=== PATIENT | male | born 1955 | race Caucasian/White ===

== ENCOUNTER → 2017-08-06 06:05 | Outpatient (CLI) | payer BC, SELFPAY ==
[2017-08-06 08:56] LABS: ALB/GLOB Ratio 0.8 RATIO (0.9-2.4); AST(SGOT) 25 U/L (15-37); Alanine Aminotransfer ALT/SGPT 28 U/L (16-61); Albumin, Serum 3.7 g/dL (3.2-5.0); Alkaline Phosphatase 95 U/L (45-117); Anion Gap 11 (5-15); BUN 21 mg/dL (7-18); BUN/Creat Ratio 16.5 RATIO (10-20); Calcium,Total 9.2 mg/dL (8.5-10.1); Chloride 98 mmol/L (98-107); Cholesterol 147 mg/dL (200); Creatinine, Serum 1.27 mg/dL (0.70-1.30); EST Glomerular Filtration Rate 61 mL/min (>60); Est Glom Filt Rate - Afr Amer 73 mL/min (>60); Globulin 4.4 g/dL (2.2-4.2); Glucose 107 mg/dL (70-110); High Density Lipoprotein 47 mg/dL; Potassium 3.6 mmol/L (3.5-5.1); Protein, Total 8.1 g/dL (6.4-8.2); Sodium Level 136 mmol/L (136-145); Triglycerides 144 mg/dL; Very Low Density Lipoprotein 29 mg/dL (5-40)
[2017-08-06 09:02] LABS: Hemoglobin A1c 6.1 % (4.2-6.3)
== END ==
PROVIDERS: Family Provider Internal Medicine; PCP Internal Medicine; Visit Provider Internal Medicine
DX: I10 Essential (primary) hypertension (principal); E78.2 Mixed hyperlipidemia; E88.81 Metabolic syndrome and other insulin resistance; Z79.899 Other long term (current) drug therapy
CPT/HCPCS: 36415; 80053; 80061; 83036; 84550

== ENCOUNTER → 2018-02-19 06:54 | Outpatient (CLI) | payer OTHER, SELFPAY ==
[2018-02-19 07:57] LABS: Absolute Lymphocyte Count 1.82 X10^3/ul (0.83-4.51); Absolute Neutrophil Count 5.9 X10^3/uL (2.0-7.7); Basophil% 1.1 % (0-1); Eosinophil# 0.38 X10^3/uL; Eosinophils% 4.2 % (0-5); Hematocrit 42.7 % (40-54); Hemoglobin 14.8 g/dl (13.0-16.5); Lymphocyte # 1.82 X10^3/ul (4.0); Lymphocyte % 20.3 % (19-41); Mean Corp Hgb Conc 34.7 g/gl (32-36); Mean Corpuscular Hgb 30.4 pg (27.0-32.0); Mean Corpuscular Volume 87.7 fL (80-94); Mean Platelet Vol. 8.7 fl (6.2-12.0); Monocyte# 0.65 X10^3/uL; Monocyte% 7.3 % (0-10); Neutrophil # 5.94 X10^3/uL (2.7-7.7); Neutrophil % 66.4 % (47-70); Platelet Count 179 K/mm3 (150-450); RBC Distribution Width CV 13.3 % (11.6-14.6); RBC Distribution Width SD 41.9 fl (35.1-43.9); Red Blood Count 4.87 M/mm3 (4.6-6.2)
[2018-02-19 07:59] LABS: POSITIVE COUNT NO; POSITIVE DIFFERENTIAL NO; POSITIVE MORPHOLOGY NO
[2018-02-19 08:17] LABS: Hemoglobin A1c 6.2 % (4.2-6.3)
[2018-02-19 08:27] LABS: ALB/GLOB Ratio 0.8 RATIO (0.9-2.4); AST(SGOT) 26 U/L (15-37); Alanine Aminotransfer ALT/SGPT 24 U/L (16-61); Albumin, Serum 3.3 g/dL (3.2-5.0); Alkaline Phosphatase 88 U/L (45-117); Anion Gap 6 (5-15); BUN 19 mg/dL (7-18); BUN/Creat Ratio 15.3 RATIO (10-20); Calcium,Total 8.6 mg/dL (8.5-10.1); Chloride 106 mmol/L (98-107); Cholesterol 143 mg/dL (200); Creatinine, Serum 1.24 mg/dL (0.70-1.30); EST Glomerular Filtration Rate 62 mL/min (>60); Est Glom Filt Rate - Afr Amer 75 mL/min (>60); Globulin 4.1 g/dL (2.2-4.2); Glucose 119 mg/dL (74-106); High Density Lipoprotein 41 mg/dL; Potassium 3.9 mmol/L (3.5-5.1); Protein, Total 7.4 g/dL (6.4-8.2); Sodium Level 139 mmol/L (136-145); Triglycerides 170 mg/dL; Uric Acid 6.2 mg/dL (3.5-7.2); Very Low Density Lipoprotein 34 mg/dL (5-40)
== END ==
PROVIDERS: Family Provider Internal Medicine; PCP Internal Medicine; Visit Provider Internal Medicine
DX: I10 Essential (primary) hypertension (principal); E78.2 Mixed hyperlipidemia; E88.81 Metabolic syndrome and other insulin resistance; Z79.899 Other long term (current) drug therapy
CPT/HCPCS: 36415; 80053; 80061; 83036; 84550; 85025

== ENCOUNTER → 2018-10-08 08:58 | Outpatient (CLI) | payer MEDICARE, OTHER, SELFPAY ==
[2017-11-18 16:14] VITALS: BMI 45.1
[2018-10-08 10:16] LABS: Hematocrit 45.4 % (40-54); Hemoglobin 15.3 g/dl (13.0-16.5); Mean Corp Hgb Conc 33.7 g/gl (32-36); Mean Corpuscular Hgb 30.4 pg (27.0-32.0); Mean Corpuscular Volume 90.1 fL (80-94); Mean Platelet Vol. 8.9 fl (6.2-12.0); Platelet Count 153 K/mm3 (150-450); RBC Distribution Width CV 13.9 % (11.6-14.6); RBC Distribution Width SD 45.7 fl (35.1-43.9); Red Blood Count 5.04 M/mm3 (4.6-6.2); Scan Indicated on CBC? Y/N NO; White Blood Count 7.6 K/mm3 (4.4-11.0)
[2018-10-08 10:41] LABS: AST(SGOT) 23 U/L (15-37); Alanine Aminotransfer ALT/SGPT 24 U/L (16-61); Albumin, Serum 3.6 g/dL (3.2-5.0); Alkaline Phosphatase 78 U/L (45-117); Anion Gap 4 (5-15); BUN 19 mg/dL (7-18); BUN/Creat Ratio 16.4 RATIO (10-20); Calcium,Total 9.1 mg/dL (8.5-10.1); Chloride 107 mmol/L (98-107); Cholesterol 132 mg/dL (200); Creatinine, Serum 1.16 mg/dL (0.70-1.30); EST Glomerular Filtration Rate 67 mL/min (>60); Est Glom Filt Rate - Afr Amer 81 mL/min (>60); Globulin 3.7 g/dL (2.2-4.2); Glucose 120 mg/dL (74-106); High Density Lipoprotein 44 mg/dL; Potassium 3.9 mmol/L (3.5-5.1); Protein, Total 7.3 g/dL (6.4-8.2); Sodium Level 141 mmol/L (136-145); Triglycerides 156 mg/dL; Uric Acid 5.9 mg/dL (3.5-7.2); Very Low Density Lipoprotein 31 mg/dL (5-40)
[2018-10-08 10:47] LABS: Hemoglobin A1c 6.2 % (4.2-6.3)
== END ==
PROVIDERS: Family Provider Internal Medicine; PCP Internal Medicine; Referring Provider Internal Medicine; Visit Provider Internal Medicine
DX: I10 Essential (primary) hypertension (principal); E78.2 Mixed hyperlipidemia; M10.9 Gout, unspecified; E88.81 Metabolic syndrome and other insulin resistance; Z79.899 Other long term (current) drug therapy
CPT/HCPCS: 36415; 80053; 80061; 83036; 84550; 85027

== ENCOUNTER → 2019-04-06 | Outpatient (CLI) | payer MEDICARE, OTHER, SELFPAY ==
[2019-01-19 14:34] VITALS: BMI 43.8
[2019-04-06 09:49] LABS: Hematocrit 44.2 % (40-54); Hemoglobin 15.1 g/dL (13.0-16.5); Mean Corp Hgb Conc 34.2 g/dL (32-36); Mean Corpuscular Hgb 29.7 pg (27.0-32.0); Mean Platelet Vol. 8.8 fl (6.2-12.0); Platelet Count 180 K/mm3 (150-450); RBC Distribution Width CV 13.5 % (11.6-14.6); RBC Distribution Width SD 42.3 fl (35.1-43.9); Red Blood Count 5.08 M/mm3 (4.6-6.2)
[2019-04-06 10:27] LABS: Hemoglobin A1c 6.4 % (4.2-6.3)
[2019-04-06 10:32] LABS: ALB/GLOB Ratio 0.9 RATIO (0.9-2.4); AST(SGOT) 25 U/L (15-37); Alanine Aminotransfer ALT/SGPT 24 U/L (16-61); Albumin, Serum 3.6 g/dL (3.2-5.0); Alkaline Phosphatase 104 U/L (45-117); Anion Gap 6 (5-15); BUN 18 mg/dL (7-18); BUN/Creat Ratio 15.4 RATIO (10-20); Calcium,Total 8.9 mg/dL (8.5-10.1); Chloride 106 mmol/L (98-107); Cholesterol 162 mg/dL (200); Creatinine, Serum 1.17 mg/dL (0.70-1.30); EST Glomerular Filtration Rate 66 mL/min (>60); Est Glom Filt Rate - Afr Amer 80 mL/min (>60); Glucose 117 mg/dL (74-106); High Density Lipoprotein 50 mg/dL; Potassium 3.5 mmol/L (3.5-5.1); Protein, Total 7.6 g/dL (6.4-8.2); Sodium Level 139 mmol/L (136-145); Triglycerides 143 mg/dL; Uric Acid 5.9 mg/dL (3.5-7.2); Very Low Density Lipoprotein 29 mg/dL (5-40)
== END | disposition home or self-care (01) ==
LOC: LAB 08:52
PROVIDERS: Family Provider Internal Medicine; PCP Internal Medicine; Referring Provider Internal Medicine; Visit Provider Internal Medicine
DX: I10 Essential (primary) hypertension (principal); R73.01 Impaired fasting glucose; E78.2 Mixed hyperlipidemia
CPT/HCPCS: 36415; 80053; 80061; 83036; 84550; 85027

== ENCOUNTER → 2020-03-26 12:19 | Outpatient (CLI) | payer MEDICARE, OTHER, SELFPAY ==
[2019-11-23 13:04] VITALS: BMI 42.5
[2020-03-26 13:37] LABS: Hematocrit 47.3 % (40-54); Hemoglobin 15.7 g/dL (13.0-16.5); Mean Corp Hgb Conc 33.2 g/dL (32-36); Mean Corpuscular Hgb 29.2 pg (27.0-32.0); Mean Corpuscular Volume 88.1 fL (80-94); Mean Platelet Vol. 8.8 fl (6.2-12.0); Platelet Count 193 K/mm3 (150-450); RBC Distribution Width CV 13.2 % (11.6-14.6); RBC Distribution Width SD 42.5 fl (35.1-43.9); Red Blood Count 5.37 M/mm3 (4.6-6.2); White Blood Count 7.9 K/mm3 (4.4-11.0)
[2020-03-26 14:15] LABS: Hemoglobin A1c 6.2 % (3.8-5.6)
[2020-03-26 14:16] LABS: ALB/GLOB Ratio 0.8 RATIO (0.9-2.4); AST(SGOT) 30 U/L (15-37); Alanine Aminotransfer ALT/SGPT 32 U/L (16-61); Albumin, Serum 3.5 g/dL (3.2-5.0); Alkaline Phosphatase 104 U/L (45-117); Anion Gap 5 (5-15); BUN 18 mg/dL (7-18); Calcium,Total 9.2 mg/dL (8.5-10.1); Chloride 103 mmol/L (98-107); Cholesterol 157 mg/dL (200); EST Glomerular Filtration Rate 64 mL/min (>60); Est Glom Filt Rate - Afr Amer 78 mL/min (>60); Globulin 4.5 g/dL (2.2-4.2); Glucose 121 mg/dL (74-106); High Density Lipoprotein 42 mg/dL; Potassium 3.9 mmol/L (3.5-5.1); Sodium Level 139 mmol/L (136-145); Triglycerides 204 mg/dL; Uric Acid 5.4 mg/dL (3.5-7.2); Very Low Density Lipoprotein 41 mg/dL (5-40)
[2020-03-26 14:45] LABS: Hepatitis C Antibody Non-Reactive (Nonreactive)
== END ==
PROVIDERS: PCP Internal Medicine; Referring Provider Internal Medicine; Visit Provider Internal Medicine
DX: R73.01 Impaired fasting glucose (principal); E78.2 Mixed hyperlipidemia
CPT/HCPCS: 36415; 80053; 80061; 83036; 84550; 85027; 86803

== ENCOUNTER → 2020-10-11 10:04 | Outpatient (CLI) | payer MEDICARE, OTHER, SELFPAY ==
[2020-05-14 11:50] VITALS: BMI 44.4
[2020-10-11 10:30] LABS: Hematocrit 46.7 % (40-54); Hemoglobin 15.5 g/dL (13.0-16.5); Mean Corp Hgb Conc 33.2 g/dL (32-36); Mean Corpuscular Hgb 29.5 pg (27.0-32.0); Mean Corpuscular Volume 88.8 fL (80-94); Mean Platelet Vol. 8.6 fl (6.2-12.0); Platelet Count 168 K/mm3 (150-450); RBC Distribution Width CV 13.1 % (11.6-14.6); RBC Distribution Width SD 42.2 fl (35.1-43.9); Red Blood Count 5.26 M/mm3 (4.6-6.2); White Blood Count 8.2 K/mm3 (4.4-11.0)
[2020-10-11 10:57] LABS: Hemoglobin A1c 6.1 % (3.8-5.6)
[2020-10-11 11:07] LABS: ALB/GLOB Ratio 0.9 RATIO (0.9-2.4); AST(SGOT) 23 U/L (15-37); Alanine Aminotransfer ALT/SGPT 26 U/L (16-61); Albumin, Serum 3.5 g/dL (3.2-5.0); Alkaline Phosphatase 100 U/L (45-117); Anion Gap 3 (5-15); BUN 19 mg/dL (7-18); BUN/Creat Ratio 16.5 RATIO (10-20); Calcium,Total 9.2 mg/dL (8.5-10.1); Chloride 103 mmol/L (98-107); Cholesterol 144 mg/dL (200); Creatinine, Serum 1.15 mg/dL (0.70-1.30); EST Glomerular Filtration Rate 67 mL/min (>60); Est Glom Filt Rate - Afr Amer 81 mL/min (>60); Glucose 118 mg/dL (74-106); High Density Lipoprotein 49 mg/dL; Potassium 4.2 mmol/L (3.5-5.1); Protein, Total 7.5 g/dL (6.4-8.2); Sodium Level 136 mmol/L (136-145); Triglycerides 157 mg/dL; Uric Acid 5.6 mg/dL (3.5-7.2); Very Low Density Lipoprotein 31 mg/dL (5-40)
== END ==
PROVIDERS: PCP Internal Medicine; Referring Provider Internal Medicine; Visit Provider Internal Medicine
DX: R73.01 Impaired fasting glucose (principal); I10 Essential (primary) hypertension; E78.2 Mixed hyperlipidemia; Z79.899 Other long term (current) drug therapy
CPT/HCPCS: 36415; 80053; 80061; 83036; 84550; 85027

== ENCOUNTER → 2020-12-05 13:50 | Outpatient (CLI) | payer MEDICARE, OTHER, SELFPAY ==
[2020-11-28 13:08] VITALS: BMI 44.1
--- NOTE | 2020-12-05 13:52 | ECHOCS_ITS ---
Reason For Study: HYPERTENSION Procedure This was a 2D Doppler, Color Flow transthoracic echocardiogram. The study was technically difficult. Exam performed in department. Left Ventricle Normal LV size. Left ventricular systolic function is normal. The estimated ejection fraction is 65 %. No regional wall motion abnormalities noted. Right Ventricle Normal RV size. Normal systolic function. Atria Normal left atrium. Normal right atrium. Mitral Valve Normal mitral valve. Tricuspid Valve Normal tricuspid valve. Aortic Valve The aortic valve is not well visualized. Pulmonic Valve The pulmonic valve is not well visualized. Great Vessels Normal aortic root. The pulmonary artery is normal size. Normal inferior vena cava. Pericardium/Pleural No pericardial effusion. Medication 22 gauge I.V. with prn adaptor inserted into left arm. Diluted definity 9ml given slow IV push to enhance endocardial definition. MMode/2D Measurements & Calculations LVIDd: 4.9 cm IVSd: 1.3 cm Ao root diam: 3.2 cm LVIDs: 3.3 cm LVPWd: 1.3 cm RVDd: 4.2 cm FS: 33.7 % LAV(MOD-bp): 41.8 ml LVAd ap4: 25.5 cm2 SV(MOD-sp4): 43.4 ml LAV(MOD-bp) Indexed: 16.3 ml/m2 LVLd ap4: 7.8 cm LAV(MOD-sp2): 30.4 ml EDV(MOD-sp4): 68.1 ml LAV(MOD-sp4): 50.4 ml EDV(sp4-el): 70.5 ml LVAs ap4: 13.8 cm2 LVLs ap4: 6.4 cm ESV(MOD-sp4): 24.7 ml ESV(sp4-el): 25.4 ml EF(MOD-sp4): 63.7 % EF(sp4-el): 63.9 % SV(sp4-el): 45.1 ml LA A4 area: 19.3 cm2 LA dimension(2D): 4.5 cm RA A4 area: 19.1 cm2 Time Measurements MV dec time: 0.29 sec Doppler Measurements & Calculations MV E max joo: 59.7 cm/sec Lat Peak E' Joo: 9.7 cm/sec Med Peak E' Joo: 9.2 cm/sec MV A max joo: 76.1 cm/sec E/E' lat: 6.2 E/E' med: 6.5 MV E/A: 0.78 Ao V2 max: 175.7 cm/sec LV V1 max: 113.7 cm/sec PA V2 max: 128.8 cm/sec Ao max P.3 mmHg LV V1 max P.2 mmHg ECHO/Echo Complete W/ Contrast Interpretation Summary Normal LV size. Left ventricular systolic function is normal. The estimated ejection fraction is 65 %. Contrast injection was performed. Ordering Physician: Devonte Calix Referring Physician: MARILIN TONEY Performed By: Lauryn Walker, PRINCESS
== END ==
PROVIDERS: PCP Internal Medicine; Referring Provider Internal Medicine Cardiovascular Disease; Visit Provider Internal Medicine Cardiovascular Disease
DX: I10 Essential (primary) hypertension (principal); R06.02 Shortness of breath
CPT/HCPCS: 93306; Q9957; A4216; C8929

== ENCOUNTER → 2021-04-29 13:01 | Outpatient (CLI) | payer MEDICARE, OTHER, SELFPAY ==
[2021-04-29 13:30] LABS: Hematocrit 47.3 % (40-54); Hemoglobin 15.7 g/dL (13.0-16.5); Mean Corp Hgb Conc 33.2 g/dL (32-36); Mean Corpuscular Hgb 29.3 pg (27.0-32.0); Mean Corpuscular Volume 88.2 fL (80-94); Mean Platelet Vol. 8.6 fl (6.2-12.0); Platelet Count 178 K/mm3 (150-450); RBC Distribution Width CV 13.2 % (11.6-14.6); RBC Distribution Width SD 42.1 fl (35.1-43.9); Red Blood Count 5.36 M/mm3 (4.6-6.2); White Blood Count 8.8 K/mm3 (4.4-11.0)
[2021-04-29 13:46] LABS: Hemoglobin A1c 6.1 % (3.8-5.6)
[2021-04-29 14:15] LABS: ALB/GLOB Ratio 0.8 RATIO (0.9-2.4); AST(SGOT) 36 U/L (15-37); Alanine Aminotransfer ALT/SGPT 35 U/L (16-61); Albumin, Serum 3.5 g/dL (3.2-5.0); Alkaline Phosphatase 115 U/L (45-117); Anion Gap 7 (5-15); BUN 15 mg/dL (7-18); BUN/Creat Ratio 12.5 RATIO (10-20); Calcium,Total 9.1 mg/dL (8.5-10.1); Chloride 104 mmol/L (98-107); Cholesterol 159 mg/dL (200); EST Glomerular Filtration Rate 64 mL/min (>60); Est Glom Filt Rate - Afr Amer 77 mL/min (>60); Globulin 4.3 g/dL (2.2-4.2); Glucose 126 mg/dL (74-106); High Density Lipoprotein 47 mg/dL; Protein, Total 7.8 g/dL (6.4-8.2); Sodium Level 141 mmol/L (136-145); Triglycerides 198 mg/dL; Uric Acid 5.4 mg/dL (3.5-7.2); Very Low Density Lipoprotein 40 mg/dL (5-40)
== END ==
PROVIDERS: PCP Internal Medicine; Referring Provider Internal Medicine; Visit Provider Internal Medicine
DX: I10 Essential (primary) hypertension (principal); R73.01 Impaired fasting glucose; E79.0 Hyperuricemia without signs of inflammatory arthritis and tophaceous disease; E78.2 Mixed hyperlipidemia
CPT/HCPCS: 36415; 80053; 80061; 83036; 84550; 85027

== ENCOUNTER 2021-10-18 09:25 | Outpatient (CLI) | payer MEDICARE, OTHER, SELFPAY ==
[2021-10-18 10:07] LABS: Hematocrit 44.9 % (40-54); Hemoglobin 15.4 g/dL (13.0-16.5); Mean Corp Hgb Conc 34.3 g/dL (32-36); Mean Corpuscular Hgb 29.7 pg (27.0-32.0); Mean Corpuscular Volume 86.5 fL (80-94); Mean Platelet Vol. 8.7 fl (6.2-12.0); Platelet Count 169 K/mm3 (150-450); RBC Distribution Width CV 13.3 % (11.6-14.6); RBC Distribution Width SD 41.6 fl (35.1-43.9); Red Blood Count 5.19 M/mm3 (4.6-6.2)
[2021-10-18 10:32] LABS: ALB/GLOB Ratio 0.9 RATIO (0.9-2.4); AST(SGOT) 24 U/L (15-37); Alanine Aminotransfer ALT/SGPT 35 U/L (16-61); Albumin, Serum 3.5 g/dL (3.2-5.0); Alkaline Phosphatase 100 U/L (45-117); Anion Gap 3 (5-15); BUN 21 mg/dL (7-18); BUN/Creat Ratio 17.2 RATIO (10-20); Calcium,Total 8.9 mg/dL (8.5-10.1); Chloride 104 mmol/L (98-107); Creatinine, Serum 1.22 mg/dL (0.70-1.30); EST Glomerular Filtration Rate 63 mL/min (>60); Est Glom Filt Rate - Afr Amer 76 mL/min (>60); Globulin 3.7 g/dL (2.2-4.2); Glucose 124 mg/dL (74-106); Potassium 3.9 mmol/L (3.5-5.1); Protein, Total 7.2 g/dL (6.4-8.2); Sodium Level 137 mmol/L (136-145); Uric Acid 5.8 mg/dL (3.5-7.2)
[2021-10-18 10:37] LABS: Hemoglobin A1c 6.1 % (3.8-5.6)
== END 2021-10-18 23:59 | disposition home or self-care (01) ==
LOC: LAB 09:27
PROVIDERS: PCP Internal Medicine; Referring Provider Internal Medicine; Visit Provider Internal Medicine
DX: I10 Essential (primary) hypertension (principal); R73.01 Impaired fasting glucose; E79.0 Hyperuricemia without signs of inflammatory arthritis and tophaceous disease
CPT/HCPCS: 36415; 80053; 83036; 84550; 85027

== ENCOUNTER → 2022-04-11 | Outpatient (CLI) | payer MEDICARE, OTHER, SELFPAY ==
[2022-04-11 09:53] LABS: Absolute Lymphocyte Count 1.98 X10^3/uL (0.83-4.51); Absolute Neutrophil Count 5.3 X10^3/uL (2.0-7.7); Basophil% 1.1 % (0-1); Eosinophil# 0.87 X10^3/uL; Eosinophils% 9.7 % (0-5); Hemoglobin 14.8 g/dL (13.0-16.5); Lymphocyte # 1.98 X10^3/ul (0.83-4.51); Lymphocyte % 22.1 % (19-41); Mean Corp Hgb Conc 33.6 g/dL (32-36); Mean Corpuscular Hgb 30.4 pg (27.0-32.0); Mean Corpuscular Volume 90.3 fL (80-94); Mean Platelet Vol. 8.6 fl (6.2-12.0); Monocyte# 0.62 X10^3/uL; Monocyte% 6.9 % (0-10); NRBC Flagged by Analyzer 0 % (0-5); Neutrophil # 5.33 X10^3/uL (2.7-7.7); Neutrophil % 59.6 % (47-70); Platelet Count 167 K/mm3 (150-450); RBC Distribution Width CV 13.1 % (11.6-14.6); RBC Distribution Width SD 42.5 fl (35.1-43.9); Red Blood Count 4.87 M/mm3 (4.6-6.2)
[2022-04-11 10:12] LABS: Hemoglobin A1c 6.2 % (3.8-5.6)
[2022-04-11 10:18] LABS: ALB/GLOB Ratio 0.8 RATIO (0.9-2.4); AST(SGOT) 31 U/L (15-37); Alanine Aminotransfer ALT/SGPT 28 U/L (16-61); Albumin, Serum 3.4 g/dL (3.2-5.0); Alkaline Phosphatase 110 U/L (45-117); Anion Gap 6 (5-15); BUN 18 mg/dL (7-18); BUN/Creat Ratio 13.3 RATIO (10-20); Calcium,Total 9.1 mg/dL (8.5-10.1); Chloride 105 mmol/L (98-107); Cholesterol 145 mg/dL (200); Creatinine, Serum 1.35 mg/dL (0.70-1.30); EST Glomerular Filtration Rate 56 mL/min (>60); Est Glom Filt Rate - Afr Amer 67 mL/min (>60); Globulin 4.1 g/dL (2.2-4.2); Glucose 120 mg/dL (74-106); High Density Lipoprotein 38 mg/dL; Protein, Total 7.5 g/dL (6.4-8.2); Sodium Level 141 mmol/L (136-145); Triglycerides 209 mg/dL; Uric Acid 5.7 mg/dL (3.5-7.2); Very Low Density Lipoprotein 42 mg/dL (5-40)
== END | disposition home or self-care (01) ==
LOC: LAB 09:22
PROVIDERS: PCP Internal Medicine; Referring Provider Internal Medicine; Visit Provider Internal Medicine
DX: I10 Essential (primary) hypertension (principal); R73.01 Impaired fasting glucose; E78.2 Mixed hyperlipidemia; E79.0 Hyperuricemia without signs of inflammatory arthritis and tophaceous disease
CPT/HCPCS: 36415; 80053; 80061; 83036; 84550; 85025

== ENCOUNTER 2022-05-20 13:00 | Outpatient (RCR) | payer MEDICARE, OTHER, SELFPAY ==
--- NOTE | 2022-01-28 10:56 | HP.PTEVAL ---
Patient's Visit Information REMIGIO BACA is a 67 year old M referred to Physical Therapy by DORENE SERRANO with a diagnosis of S/P R TSA reverse 01/21/22. Date of Evaluation: 01/28/22 Physical Therapist: Werner Ashraf, SHARDAT, OCS, CSCS - Visit Plan Frequency: 2x /Week Duration: 3 Months Plan: 2x/week for 6-8 weeks for. 1. PROM R shoulder and elbow progressing per protocol with ana at week 3, and stick er at week 3-4 , scap strength can start at week 3-4 and deltoid isometrics.9week 3 is 8/4-8. 2. AAROM to AROM through week 8 (03/19). progressive strength at week 9 (end March). Full golf swing at 4 months (may. may use STM for bruising and PROm for pain management in meantime. - Subjective Had reverse TSA R shoulder last Wednesday on 01/21/22, Had on and off trouble for long time. had a lot of pain. Surgery went well. Had bleeding at home after surgery. Pain level is 4/10, was worse last week. Has immoblizer but d/cd by doctor over the weekend. Not using it right now, but doctor said he could use it. Doctor told him no limitations. Sleeping in recliner due to surgery, sleeping about 10 hours including naps. basic ADLS: needs help with shirt and shoes and socks. Bathroom I. Showers need some help. No problems with balance. Retired from [employer]. Hobbies include TV and ex at [employer] yard work. Works on bicycle. Not doing yard work but tends to 2 hour once per week. Was playing golf the week prior to surgery. - Pain R shoulder Pain Intensity (Out of 10): 2 Pain Intensity Range: 3, 7 - Objective Walks into PT I and trasnfers I bed and chair , no sling on today and is stating doc told him he did not have =to wear it. i did review protocol supplied with him today. bruising apparent R biceps, incision dressed properly and appears dry although it is covered. Scap aROM WFL although some discomfort on R. Elbow aROM R -30 extension(may have been like this prior to surgery according to patient) and full symmetrical flexion with L although sore on R. wrist adn hand AROM B WNL. L elbow AROM -10 to full. L shoulder AROM 135 elevation and 50 er and L5 IR. R PROM shoulder er to 5 degrees, IR to belly comfortably, flexion to 80 and abduction to 70 all limited by discomfort and empty endfeel. - Balance/Special Test Scores Quick DASH Score: 90.9075 - Goals Goal 1:: ST: PROM 130 flexion and abduction and 30 ext rotation Goal Time Frame: 2-4 Weeks Goal 2:: ST:: pain 0-2/10 at allt imes Goal Time Frame: 2-4 Weeks Goal 3:: LT: place hand on head, and reach into cupboard for light objects I Goal Time Frame: 6-8 Weeks Goal 4:: Pt feel 90% back to normal activities as prior Goal Time Frame: 6-8 Weeks Goal 5:: Plan to resume golfing back to [employer] workout. Goal Time Frame: 8-12 Weeks - Rehabilitation Potential Physical Therapy Diagnosis: R shoulder stiffness and pain after surgery , limited funciton. Rehabilitation Potential: Good - Anticipated Interventions Patient/Client Instruction: Educate patient on: Condition, Plan of Care For the Purpose of:: To decrease pain, To increase ROM, To improve muscle performance and motor function, To increase tolerance to activity/condition/position, To improve ability of physical actions for home/community/work/leisure Therapeutic Exercise to Include: Strength training, Postural training, Passive ROM, Scapular Strength/Stabilization Comment: AAROM For the Purpose of:: To decrease pain, To increase ROM, To improve muscle performance and motor function, To increase tolerance to activity/condition/position, To improve ability of physical actions for home/community/work/leisure Manual Therapy Techniques to Include: Passive ROM, Soft tissue mobilization For the Purpose of:: To decrease pain, To increase ROM Cryotherapy (ice pack, ice massage): Yes For the Purpose of:: To decrease swelling/inflammation Thank you for the opportunity to evaluate your patient. For Medicare and Medicare HMO plans, please review the plan of care and approve it. It will need to be FAXED BACK to us at [phone] for Medicare purposes. For Medicare only, by signing this I certify the plan of care. Please let me know if there are questions or concerns regarding this plan of care. Physician Signature: Date:
--- NOTE | 2022-02-26 13:21 | HP.PTREVAL ---
DORENE SERRANO, It has been my pleasure to treat REMIGIO BACA over the last 9 visits for S/P R TSA reverse 01/21/22. Please see the progress note below for an update on the physical therapy plan of care! Subjective: Pt reports that he is doing a little better each day. Doing home exercises and movement is getting better. Still trouble getting arm over 90 deg. Objective/Function: Good tolerance to the above exercises. Passive motion is still limited with ER and flexion. But better than last week! Plan Plan: 2x/week for 6-8 weeks for. 1. PROM R shoulder and elbow progressing per protocol with ana at week 3, and stick er at week 3-4, scap strength can start at week 3-4 and deltoid isometrics. week 3 is 02/05-02/11. 2. AAROM to AROM through week 8 (03/19). progressive strength at week 9 (end March). Full golf swing at 4 months (may. may use STM for bruising and PROm for pain management in meantime. Balance/Gait/Functional tests - Balance/Special Test Scores Quick DASH Score: 25.0000 Goals Goal 1:: ST: PROM 130 flexion and abduction and 30 ext rotation Goal Time Frame: 2-4 Weeks Goal Progress: Goal Met Goal 2:: ST:: pain 0-2/10 at allt imes Goal Time Frame: 2-4 Weeks Goal Progress: Goal Met Goal 3:: LT: place hand on head, and reach into cupboard for light objects I Goal Time Frame: 6-8 Weeks Goal 4:: Pt feel 90% back to normal activities as prior Goal Time Frame: 6-8 Weeks Goal 5:: Plan to resume golfing back to workout. Goal Time Frame: 8-12 Weeks Anticipated Interventions Patient/Client Instruction: Educate patient on: Condition, Plan of Care For the Purpose of:: To decrease pain, To increase ROM, To improve muscle performance and motor function, To increase tolerance to activity/condition/position, To improve ability of physical actions for home/community/work/leisure Therapeutic Exercise to Include: Strength training, Postural training, Passive ROM, Scapular Strength/Stabilization Comment: AAROM For the Purpose of:: To decrease pain, To increase ROM, To improve muscle performance and motor function, To increase tolerance to activity/condition/position, To improve ability of physical actions for home/community/work/leisure Manual Therapy Techniques to Include: Passive ROM, Soft tissue mobilization For the Purpose of:: To decrease pain, To increase ROM Cryotherapy (ice pack, ice massage): Yes For the Purpose of:: To decrease swelling/inflammation Please do not hesitate to contact me at [phone] by phone or if you have questions or concerns regarding this new plan of care! Sincerely, Werner Ashraf, SHARDAT, OCS, CSCS
--- NOTE | 2022-03-26 13:58 | HP.PTREVAL_ITS ---
DORENE SERRANO, It has been my pleasure to treat REMIGIO BACA over the last 17 visits for S/P R TSA reverse 01/21/22. Please see the progress note below for an update on the physical therapy plan of care! Subjective: Everything going well except lifting. Pain at rest is good. Sleeping is not great if he is on side. Exercises are going well at home. h aving trouble with stretching OH and it hurts when he does it. Has been pulling on bands at home OTB 3x10 phase 3. To doctor in April 14. Wants more therapy to raise arm better. Objective/Function: Leans L in posture. Better after EIS. needs core strenth. 60 elevation R UE, 111 PROM with wall. Improved er strength vs last recheck with 4-/5 strength R, elevation strength still 3-. Says he has not lifted arm OH vfor a long time but at least now is able to put hand on back of head. 50 ext rotation PROM 45 AROM R. IR to PSIS. Goals checked and still appropriate, Fair to questionable prognosis. Plan Plan: 2x/week x 4 weeks until end April please work on end range of flexion/elevation manually and anaraya. Please work on elevator strength via HEP and in gym. Please teach core strength in gym to tolerance for back(back extension, gentle pot stirs, abs) Balance/Gait/Functional tests - Balance/Special Test Scores Quick DASH Score: 40.9075 Goals Goal 1:: ST: PROM 130 flexion and abduction and 30 ext rotation Goal Time Frame: 2-4 Weeks Goal Progress: not yet., appropriate Goal 2:: ST:: pain 0-2/10 at allt imes Goal Time Frame: 2-4 Weeks Goal Progress: Goal Met, except OH Goal 3:: LT: place hand on head, and reach into cupboard for light objects I Goal Time Frame: 6-8 Weeks Goal Progress: Progressing, approp Goal 4:: Pt feel 90% back to normal activities as prior Goal Time Frame: 6-8 Weeks Goal Progress: 60%, approp Goal 5:: Plan to resume golfing back to [employer] workout. Goal Time Frame: 8-12 Weeks Goal Progress: not yet. Goal 6:: 115 AROM to help with ADLs adn activities Goal Time Frame: 4-6 Weeks Goal Progress: NEW GOAL Anticipated Interventions Patient/Client Instruction: Educate patient on: Condition, Plan of Care For the Purpose of:: To decrease pain, To increase ROM, To improve muscle performance and motor function, To increase tolerance to activity/condition/position, To improve ability of physical actions for home/community/work/leisure Therapeutic Exercise to Include: Strength training, Postural training, Passive ROM, Scapular Strength/Stabilization Comment: AAROM For the Purpose of:: To decrease pain, To increase ROM, To improve muscle performance and motor function, To increase tolerance to activity/condi tion/position, To improve ability of physical actions for home/community/work/leisure Manual Therapy Techniques to Include: Passive ROM, Soft tissue mobilization For the Purpose of:: To decrease pain, To increase ROM Cryotherapy (ice pack, ice massage): Yes For the Purpose of:: To decrease swelling/inflammation Please do not hesitate to contact me at [phone] by phone or if you have questions or concerns regarding this new plan of care! Sincerely, Werner Ashraf, DPT, OCS, CSCS
--- NOTE | 2022-04-30 14:21 | HP.PTREVAL ---
DORENE SERRANO, It has been my pleasure to treat REMIGIO BACA over the last 25 visits for S/P R TSA reverse 01/21/22. Please see the progress note below for an update on the physical therapy plan of care! Subjective: Just came from a massage. Overall getting better but raising it up in the air is still challenging. Can lift it without gravity. Can only lift it overhead against gravity if helps with other arm. It feels like it is getting stronger. Saw doctor on 04/21 and is released. Pain daily is not bad and hardly any. Gets some pain with OH exercises. It lasts short time and is 3/10. Activities are pretty close to normal at home. Reaching up he does with his L hand. Dressing is OK. Objective/Function: AROM 80 flexion, 110 PROM, 125 manually. 60 PROM Ext rotation 40 ext rot AROM. Strength er R 3+, IR 4, flexion 4- to 80 degrees, not able further. Walks normal and pain is not an issue. Goal's are appropriate for 4 more weeks for recheck. Plan Plan: Pt to [facility] and gym ex and f/u in one month to ensure continued progress toward same goals and likely d/c. Will call prior if problems. Balance/Gait/Functional tests - Balance/Special Test Scores Quick DASH Score: 13.6350 Goals Goal 1:: ST: PROM 130 flexion and abduction and 30 ext rotation Goal Time Frame: 2-4 Weeks Goal Progress: 80, stagnant Goal 2:: ST:: pain 0-2/10 at allt imes Goal Time Frame: 2-4 Weeks Goal Progress: Goal Met Goal 3:: LT: place hand on head, and reach into cupboard for light objects I Goal Time Frame: 6-8 Weeks Goal Progress: low cupboard. Goal 4:: Pt feel 90% back to normal activities as prior Goal Time Frame: 6-8 Weeks Goal Progress: 80% Goal 5:: Plan to resume golfing back to [place] workout. Goal Time Frame: 8-12 Weeks Goal Progress: chipping. Goal 6:: 115 AROM to help with ADLs adn activities Goal Time Frame: 4-6 Weeks Goal Progress: only PROM Anticipated Interventions Patient/Client Instruction: Educate patient on: Condition, Plan of Care For the Purpose of:: To decrease pain, To increase ROM, To improve muscle performance and motor function, To increase tolerance to activity/condition/position, To improve ability of physical actions for home/community/work/leisure Therapeutic Exercise to Include: Strength training, Postural training, Passive ROM, Scapular Strength/Stabilization Comment: AAROM For the Purpose of:: To decrease pain, To increase ROM, To improve muscle performance and motor function, To increase tolerance to activity/condition/position, To improve ability of physical actions for home/community/work/leisure Manual Therapy Techniques to Include: Passive ROM, Soft tissue mobilization For the Purpose of:: To decrease pain, To increase ROM Cryotherapy (ice pack, ice massage): Yes For the Purpose of:: To decrease swelling/inflammation Please do not hesitate to contact me at [phone] by phone or if you have questions or concerns regarding this new plan of care! Sincerely, Werner Ashraf, DPT, OCS, CSCS
--- NOTE | 2022-05-20 13:15 | HP.PTDCSUM ---
It has been my pleasure to treat REMIGIO BACA referred by DORENE SERRANO, with the diagnosis of S/P R TSA reverse 01/21/22 for a total of 26 visit(s). Discharge Date: 05/20/22 Please see the following information for a summary of their discharge status. Subjective: Played a couple rounds of golf. Slowed swing way down. No problem afterwards. Has increased weights on machines. Still hard to raise OH but going slightly higher. Can move well otherwise. Pain is minimal with ex and no pain at rest. Sleep is OK. Life back to normal. No f/u with doctor R shoulder Pain Intensity (Out of 10): 0 % Improvement: 80 Objective/Function: 100 AROM flexion, 135 PROM flexion. ER AROM to 45 adn PROM to 60. Moving well and strength is improving to 4- ext rotation and 3+ elevation in lower range. Pt happy where he is at and can golf without issues and will slowly progress. Goal 1:: ST: PROM 130 flexion and abduction and 30 ext rotation Goal Progress: Progressing Goal 2:: ST:: pain 0-2/10 at allt imes Goal Progress: Goal Met Goal 3:: LT: place hand on head, and reach into cupboard for light objects I Goal Progress: Goal Met Goal 4:: Pt feel 90% back to normal activities as prior Goal Progress: 80% Goal 5:: Plan to resume golfing back to [place] workout. Goal Progress: Goal Met Goal 6:: 115 AROM to help with ADLs adn activities Goal Progress: 100 Plan: d/c If there are questions or concerns regarding this patient's physical therapy, please feel free to call me at [phone]. Thank you for the referral of this patient. Sincerely, Werner Ashraf, DPT, OCS, CSCS Balance/Gait/Functional tests - Balance/Special Test Scores Quick DASH Score: 12.5000
== END 2022-05-20 13:36 | disposition home or self-care (01) ==
LOC: PT 13:00
PROVIDERS: PCP Internal Medicine
DX: Z47.1 Aftercare following joint replacement surgery (principal); Z96.611 Presence of right artificial shoulder joint
CPT/HCPCS: 97110; 97140; 97161; 97164; 97530

== ENCOUNTER → 2022-10-05 | Outpatient (CLI) | payer MEDICARE, OTHER, SELFPAY ==
[2022-10-05 10:33] LABS: Absolute Lymphocyte Count 1.53 X10^3/uL (0.83-4.51); Absolute Neutrophil Count 5.1 X10^3/uL (2.0-7.7); Basophil# 0.09 X10^3/uL; Basophil% 1.2 % (0-1); Eosinophil# 0.49 X10^3/uL; Eosinophils% 6.3 % (0-5); Hematocrit 44.9 % (40-54); Lymphocyte # 1.53 X10^3/ul (0.83-4.51); Lymphocyte % 19.6 % (19-41); Mean Corp Hgb Conc 33.4 g/dL (32-36); Mean Corpuscular Hgb 30.1 pg (27.0-32.0); Mean Platelet Vol. 8.6 fl (6.2-12.0); Monocyte# 0.55 X10^3/uL; NRBC Flagged by Analyzer 0 % (0-5); Neutrophil # 5.11 X10^3/uL (2.7-7.7); Neutrophil % 65.3 % (47-70); Platelet Count 153 K/mm3 (150-450); RBC Distribution Width CV 13.8 % (11.6-14.6); RBC Distribution Width SD 45.3 fl (35.1-43.9); Red Blood Count 4.99 M/mm3 (4.6-6.2); White Blood Count 7.8 K/mm3 (4.4-11.0)
[2022-10-05 11:09] LABS: ALB/GLOB Ratio 0.9 RATIO (0.9-2.4); AST(SGOT) 24 U/L (15-37); Alanine Aminotransfer ALT/SGPT 22 U/L (16-61); Albumin, Serum 3.5 g/dL (3.2-5.0); Alkaline Phosphatase 101 U/L (45-117); Anion Gap 5 (5-15); BUN 22 mg/dL (7-18); BUN/Creat Ratio 15.8 RATIO (10-20); Calcium,Total 9.5 mg/dL (8.5-10.1); Chloride 108 mmol/L (98-107); Cholesterol 134 mg/dL (200); Creatinine, Serum 1.39 mg/dL (0.70-1.30); EST Glomerular Filtration Rate 54 mL/min (>60); Est Glom Filt Rate - Afr Amer 65 mL/min (>60); Globulin 3.9 g/dL (2.2-4.2); Glucose 134 mg/dL (74-106); High Density Lipoprotein 44 mg/dL; Potassium 4.1 mmol/L (3.5-5.1); Protein, Total 7.4 g/dL (6.4-8.2); Sodium Level 141 mmol/L (136-145); Triglycerides 140 mg/dL; Very Low Density Lipoprotein 28 mg/dL (5-40)
== END | disposition home or self-care (01) ==
LOC: LAB 10:18
PROVIDERS: PCP Internal Medicine; Referring Provider Internal Medicine; Visit Provider Internal Medicine
DX: R73.01 Impaired fasting glucose (principal); Z79.899 Other long term (current) drug therapy
CPT/HCPCS: 36415; 80053; 80061; 83036; 85025

== ENCOUNTER → 2023-04-15 | Outpatient (CLI) | payer MEDICARE, OTHER, SELFPAY ==
[2023-04-15 13:29] LABS: Hematocrit 44.9 % (40-54); Hemoglobin 14.8 g/dL (13.0-16.5); Mean Corpuscular Hgb 29.7 pg (27.0-32.0); Mean Corpuscular Volume 90.2 fL (80-94); Mean Platelet Vol. 8.6 fl (6.2-12.0); Platelet Count 161 K/mm3 (150-450); RBC Distribution Width CV 13.4 % (11.6-14.6); RBC Distribution Width SD 43.8 fl (35.1-43.9); Red Blood Count 4.98 M/mm3 (4.6-6.2); White Blood Count 7.5 K/mm3 (4.4-11.0)
[2023-04-15 13:51] LABS: Hemoglobin A1c 6.3 % (3.8-5.6)
[2023-04-15 13:52] LABS: ALB/GLOB Ratio 0.9 RATIO (0.9-2.4); AST(SGOT) 27 U/L (15-37); Alanine Aminotransfer ALT/SGPT 32 U/L (16-61); Albumin, Serum 3.5 g/dL (3.2-5.0); Alkaline Phosphatase 110 U/L (45-117); Anion Gap 4 (5-15); BUN 15 mg/dL (7-18); BUN/Creat Ratio 12.1 RATIO (10-20); Calcium,Total 9.4 mg/dL (8.5-10.1); Chloride 101 mmol/L (98-107); Cholesterol 123 mg/dL (200); Creatinine, Serum 1.24 mg/dL (0.70-1.30); EST Glomerular Filtration Rate 61 mL/min (>60); Est Glom Filt Rate - Afr Amer 74 mL/min (>60); Glucose 122 mg/dL (74-106); High Density Lipoprotein 44 mg/dL; Protein, Total 7.5 g/dL (6.4-8.2); Sodium Level 135 mmol/L (136-145); Triglycerides 127 mg/dL; Uric Acid 5.1 mg/dL (3.5-7.2); Very Low Density Lipoprotein 25 mg/dL (5-40)
== END | disposition home or self-care (01) ==
LOC: LAB 12:55
PROVIDERS: PCP Internal Medicine; Visit Provider Internal Medicine
DX: R73.01 Impaired fasting glucose (principal); I10 Essential (primary) hypertension
CPT/HCPCS: 36415; 80053; 80061; 83036; 84550; 85027

== ENCOUNTER → 2023-10-13 | Outpatient (CLI) | payer MEDICARE, OTHER, SELFPAY ==
[2023-10-13 12:42] LABS: Hematocrit 45.7 % (40-54); Hemoglobin 15.2 g/dL (13.0-16.5); Mean Corp Hgb Conc 33.3 g/dL (32-36); Mean Corpuscular Hgb 29.5 pg (27.0-32.0); Mean Corpuscular Volume 88.6 fL (80-94); Mean Platelet Vol. 8.7 fl (6.2-12.0); Platelet Count 148 K/mm3 (150-450); RBC Distribution Width CV 13.2 % (11.6-14.6); RBC Distribution Width SD 42.6 fl (35.1-43.9); Red Blood Count 5.16 M/mm3 (4.6-6.2); White Blood Count 8.4 K/mm3 (4.4-11.0)
[2023-10-13 13:20] LABS: ALB/GLOB Ratio 0.9 RATIO (0.9-2.4); AST(SGOT) 26 U/L (15-37); Alanine Aminotransfer ALT/SGPT 26 U/L (16-61); Albumin, Serum 3.6 g/dL (3.2-5.0); Alkaline Phosphatase 113 U/L (45-117); Anion Gap 2 (5-15); BUN 15 mg/dL (7-18); BUN/Creat Ratio 11.9 RATIO (10-20); Calcium,Total 9.7 mg/dL (8.5-10.1); Chloride 106 mmol/L (98-107); Cholesterol 148 mg/dL (200); Creatinine, Serum 1.26 mg/dL (0.70-1.30); EST Glomerular Filtration Rate 60 mL/min (>60); Est Glom Filt Rate - Afr Amer 73 mL/min (>60); Globulin 3.8 g/dL (2.2-4.2); Glucose 135 mg/dL (74-106); High Density Lipoprotein 49 mg/dL; Potassium 4.1 mmol/L (3.5-5.1); Protein, Total 7.4 g/dL (6.4-8.2); Sodium Level 139 mmol/L (136-145); Triglycerides 134 mg/dL; Uric Acid 5.2 mg/dL (3.5-7.2); Very Low Density Lipoprotein 27 mg/dL (5-40)
[2023-10-13 13:45] LABS: Hemoglobin A1c 6.3 % (3.8-5.6)
== END | disposition home or self-care (01) ==
LOC: LAB 12:27
PROVIDERS: PCP Internal Medicine; Referring Provider Internal Medicine; Visit Provider Internal Medicine
DX: I10 Essential (primary) hypertension (principal); R73.01 Impaired fasting glucose
CPT/HCPCS: 36415; 80053; 80061; 83036; 84550; 85027

== ENCOUNTER → 2024-03-24 | Outpatient (CLI) | payer MEDICARE, OTHER, SELFPAY ==
[2024-03-24 11:19] LABS: Hematocrit 44.4 % (40-54); Hemoglobin 14.8 g/dL (13.0-16.5); Mean Corp Hgb Conc 33.3 g/dL (32-36); Mean Corpuscular Hgb 29.2 pg (27.0-32.0); Mean Corpuscular Volume 87.7 fL (80-94); Mean Platelet Vol. 8.8 fl (6.2-12.0); Platelet Count 170 K/mm3 (150-450); RBC Distribution Width CV 13.3 % (11.6-14.6); RBC Distribution Width SD 42.8 fl (35.1-43.9); Red Blood Count 5.06 M/mm3 (4.6-6.2); White Blood Count 8.8 K/mm3 (4.4-11.0)
[2024-03-24 11:50] LABS: ALB/GLOB Ratio 0.9 RATIO (0.9-2.4); AST(SGOT) 20 U/L (15-37); Alanine Aminotransfer ALT/SGPT 18 U/L (16-61); Albumin, Serum 3.4 g/dL (3.2-5.0); Alkaline Phosphatase 101 U/L (45-117); Anion Gap 5 (5-15); BUN 20 mg/dL (7-18); BUN/Creat Ratio 16.3 RATIO (10-20); Calcium,Total 9.3 mg/dL (8.5-10.1); Chloride 104 mmol/L (98-107); Cholesterol 135 mg/dL (200); Creatinine, Serum 1.23 mg/dL (0.70-1.30); EST Glomerular Filtration Rate 62 mL/min (>60); Est Glom Filt Rate - Afr Amer 75 mL/min (>60); Globulin 3.9 g/dL (2.2-4.2); Glucose 138 mg/dL (74-106); High Density Lipoprotein 42 mg/dL; Potassium 3.6 mmol/L (3.5-5.1); Protein, Total 7.3 g/dL (6.4-8.2); Sodium Level 136 mmol/L (136-145); Triglycerides 163 mg/dL; Uric Acid 5.4 mg/dL (3.5-7.2); Very Low Density Lipoprotein 33 mg/dL (5-40)
[2024-03-24 12:14] LABS: Hemoglobin A1c 6.3 % (3.8-5.6)
== END | disposition home or self-care (01) ==
LOC: LAB 10:12
PROVIDERS: PCP Internal Medicine; Referring Provider Internal Medicine; Visit Provider Internal Medicine
DX: E79.0 Hyperuricemia without signs of inflammatory arthritis and tophaceous disease (principal); R73.01 Impaired fasting glucose; I10 Essential (primary) hypertension; E78.2 Mixed hyperlipidemia
CPT/HCPCS: 36415; 80053; 80061; 83036; 84550; 85027

== ENCOUNTER → 2024-10-04 | Outpatient (CLI) | payer MEDICARE, OTHER, SELFPAY ==
[2024-10-04 10:59] LABS: Hematocrit 43.1 % (40-54); Hemoglobin 14.8 g/dL (13.0-16.5); Mean Corp Hgb Conc 34.3 g/dL (32-36); Mean Corpuscular Hgb 30.1 pg (27.0-32.0); Mean Corpuscular Volume 87.8 fL (80-94); Mean Platelet Vol. 8.6 fl (6.2-12.0); Platelet Count 141 K/mm3 (150-450); RBC Distribution Width CV 13.8 % (11.6-14.6); RBC Distribution Width SD 44.3 fl (35.1-43.9); Red Blood Count 4.91 M/mm3 (4.6-6.2); White Blood Count 7.3 K/mm3 (4.4-11.0)
[2024-10-04 16:58] LABS: Cholesterol 206 mg/dL (<=200); High Density Lipoprotein 50 mg/dL; Low Density Lipoprotein Calc. 118 mg/dL; Triglycerides 190 mg/dL; Uric Acid 5.7 mg/dL (3.5-7.2); Very Low Density Lipoprotein 38 mg/dL (5-40); cholesterol:hdl ratio screen 4.15
[2024-10-04 18:00] LABS: Hemoglobin A1c 6.8 % (<=5.6)
[2024-10-04 18:04] LABS: ALB/GLOB Ratio 1.2 RATIO (0.9-2.4); AST(SGOT) 60 U/L (<=37); Alanine Aminotransfer ALT/SGPT 23 U/L (<=46); Alkaline Phosphatase 99 U/L (40-129); Anion Gap 12 (5-15); BUN 17 mg/dL (4-19); BUN/Creat Ratio 12.5 RATIO (10-20); Calcium,Total 9.5 mg/dL (7.6-11.0); Carbon Dioxide 23.8 mmol/L (21.0-32.0); Chloride 103 mmol/L (98-108); Creatinine, Serum 1.38 mg/dL (0.70-1.20); EST Glomerular Filtration Rate 55 (>60); Globulin 3.4 g/dL (2.2-4.2); Glucose 144 mg/dL (70-99); Potassium 5.1 mmol/L (3.3-5.1); Protein, Total 7.4 g/dL (5.9-8.4); Sodium Level 139 mmol/L (133-145)
== END | disposition home or self-care (01) ==
LOC: LAB 10:20
PROVIDERS: PCP Internal Medicine; Referring Provider Internal Medicine; Visit Provider Internal Medicine
DX: R73.01 Impaired fasting glucose (principal); Z79.899 Other long term (current) drug therapy; I10 Essential (primary) hypertension; E78.2 Mixed hyperlipidemia; E79.0 Hyperuricemia without signs of inflammatory arthritis and tophaceous disease
CPT/HCPCS: 36415; 80053; 80061; 83036; 84550; 85027

== ENCOUNTER → 2025-04-14 | Outpatient (CLI) | payer MEDICARE, OTHER, SELFPAY ==
[2025-04-14 11:36] LABS: Hematocrit 45.1 % (40-54); Hemoglobin 15.1 g/dL (13.0-16.5); Mean Corp Hgb Conc 33.5 g/dL (32-36); Mean Corpuscular Volume 89.1 fL (80-94); Mean Platelet Vol. 8.8 fl (6.2-12.0); Platelet Count 165 K/mm3 (150-450); RBC Distribution Width CV 13.4 % (11.6-14.6); RBC Distribution Width SD 43.4 fl (35.1-43.9); Red Blood Count 5.06 M/mm3 (4.6-6.2); White Blood Count 9.8 K/mm3 (4.4-11.0)
[2025-04-14 11:59] LABS: AST(SGOT) 24 U/L (<=37); Alanine Aminotransfer ALT/SGPT 16 U/L (<=46); Albumin, Serum 4.1 g/dL (3.4-4.8); Alkaline Phosphatase 122 U/L (40-129); Anion Gap 11 (5-15); BUN 22 mg/dL (4-19); BUN/Creat Ratio 17.9 RATIO (10-20); Calcium,Total 9.6 mg/dL (7.6-11.0); Carbon Dioxide 25.9 mmol/L (21.0-32.0); Chloride 101 mmol/L (98-108); Cholesterol 142 mg/dL (<=200); Globulin 3.4 g/dL (2.2-4.2); Glucose 135 mg/dL (70-99); Low Density Lipoprotein Calc. 65 mg/dL; Potassium 4.4 mmol/L (3.3-5.1); Triglycerides 160 mg/dL; Uric Acid 5.2 mg/dL (3.5-7.2); Very Low Density Lipoprotein 32 mg/dL (5-40); cholesterol:hdl ratio screen 3.17
== END | disposition home or self-care (01) ==
LOC: LAB 11:23
PROVIDERS: PCP Internal Medicine; Referring Provider Internal Medicine; Visit Provider Internal Medicine
DX: E79.0 Hyperuricemia without signs of inflammatory arthritis and tophaceous disease (principal); Z79.899 Other long term (current) drug therapy; E78.2 Mixed hyperlipidemia; I10 Essential (primary) hypertension; R73.01 Impaired fasting glucose
CPT/HCPCS: 36415; 80053; 80061; 83036; 84550; 85027